=== PATIENT | female | born 1995 | race Caucasian/White ===

== ENCOUNTER 2022-01-04 14:45 | Emergency (ER) | payer MEDICAID, SELFPAY ==
[2022-01-04 14:47] VITALS: BP 124/69; PULSE 79; RESP 18; TEMP 36.5; O2SAT 99; BMI 34.9
--- NOTE | 2022-01-04 15:15 | EDS_ITS ---
HPI History of Present Illness Chief Complaint: Numb/Ting Onset/Context/Timing Onset: Today and Hours (5) Context: Gradual Onset Timing: Intermittent and Lasts (Approximately 1 minute) Quality: Tingling, numb Location: Right arm, right leg, left face Worsened by: Nothing Relieved by: Changing positions Narrative Narrative: Patient presents with paresthesias to her right arm and leg and left side of her face. Patient states these began approximately 10 AM (approximately 5 hours prior to arrival). Patient states it has been intermittent since this morning. Patient states it last for proxy 1 minute. Patient states she feels some tingling in her right arm and leg and then feels a numb sensation. Patient states that she gets up and moves and changes positions and it resolves. Patient states nothing makes it worse. Patient also admits to some tingling in the left side of her face. Patient states this is also been intermittent. Patient also admits to some intermittent chest pain and palpitations over the last couple days. Patient states these are unrelated to the numbness and tingling. Patient also admits to some pain in the right side of her neck. PFSH PFSH Medical History no medical history no medical history Home Medications NK 01/04/22 [History Last Taken Unknown] Allergy/AdvReac Type Severity Reaction Status Date / Time ceftriaxone [From Rocephin] Allergy Anaphylaxis Verified 01/04/22 14:47 Surgical History Previous section Social History Smoking Status: Former smoker ROS ROS ED Constitutional Constitutional ED: Denies chills or fever(s) Eyes Eyes: Denies blurry vision or change in vision ENT ENT ED: Denies rhinorrhea or sore throat Cardiovascular Cardiovascular: Reports chest pain and palpitations Respiratory/Chest Respiratory/Chest: Denies cough or dyspnea Gastrointestinal Gastrointestinal: Denies nausea or vomiting Genitourinary Genitourinary ED: Denies dysuria or hematuria Musculoskeletal Musculoskeletal: Reports neck pain; Denies back pain Integumentary Denies abscess or rash Neurologic Neurologic: Denies headache(s) or weakness Allergic/Immunologic Allergic/Immunologic ED: Denies mouth swelling or urticaria EXAM Physical Exam Const Vital Signs: 01/04/22 14:47 Temperature 97.7 F L Temperature Source Temporal Pulse Rate 79 Respiratory Rate 18 Blood Pressure 124/69 H Blood Pressure Mean 87 Pulse Ox 99 Oxygen Delivery Method Room Air Positive well nourished and well developed General Appearance ED: well developed and NAD HEENT Reports moist mucous membranes Neck supple and no JVD Resp normal respiratory effort and clear to auscultation bilaterally Cardio regular rate, regular rhythm and no murmurs GI normal to inspection, nondistended, normoactive bowel sounds and non-tender Palpation: soft Extremity normal to inspection General Extremety ED: Negative for edema or tenderness General Extremity: Negative for edema Neuro oriented x3 Neuro Narrative: There is slight decrease sensation to light touch in the left V3 distribution. There are no other sensory deficits noted. Sensorium / Orientation: alert Motor Exam: strength 5/5 throughout Psych mental status grossly normal Skin no rashes or lesions noted MDM MDM MDM Narrative Medical decision making narrative: CT scan of the brain was obtained. There is no acute intracranial abnormality. This was interpreted by the radiologist and reviewed by myself. CT scan of the cervical spine was obtained. There is no acute abnormality noted. There is no disc space narrowing. This was interpreted by the radiologist and reviewed by myself. CBC was essentially within normal limits. PT with INR and PTT were within normal limits. Initial BGT was 100. Comprehensive metabolic profile was within normal limits. High-sensitivity troponin was normal. Patient was advised of her findings. Since her NIH score is 1 for the slight decrease sensation in the V3 dermatome, and her symptoms are rapidly improving, patient does not qualify for stroke team for tPA. Patient was instructed to follow-up with her primary care physician for reevaluation in 3 to 5 days. Patient understood and was agreeable with the plan. All questions were answered. Lab Data Attestation: I reviewed the patient's lab results. Labs: Laboratory Results - last 24 hr 01/04/22 01/04/22 01/04/22 15:30 15:37 15:37 WBC 10.9 RBC 5.02 Hgb 15.1 H Hct 44.3 MCV 88.2 MCH 30.1 MCHC 34.1 RDW Std Deviation 38.8 RDW Coeff of Chelsie 12.1 Plt Count 275 MPV 9.9 Immature Gran % (Auto) 0.300 Neut % (Auto) 71.6 H Lymph % (Auto) 20.7 [place] % (Auto) 4.9 Eos % (Auto) 2.0 Baso % (Auto) 0.5 Absolute Neuts (auto) 7.8 H Absolute Lymphs (auto) 2.27 Nucleated RBC % 0 PT 12.9 INR 1.0 APTT 26.4 Sodium Potassium Chloride Carbon Dioxide Anion Gap BUN Creatinine Estim Creat Clear Calc Est GFR (MDRD) Af Amer Est GFR (MDRD) Non-Af BUN/Creatinine Ratio Glucose Calcium Total Bilirubin AST ALT Alkaline Phosphatase Troponin I High Sens Total Protein Albumin Globulin Albumin/Globulin Ratio POC Glucose 100 01/04/22 15:37 WBC RBC Hgb Hct MCV MCH MCHC RDW Std Deviation RDW Coeff of Chelsie Plt Count MPV Immature Gran % (Auto) Neut % (Auto) Lymph % (Auto) [place] % (Auto) Eos % (Auto) Baso % (Auto) Absolute Neuts (auto) Absolute Lymphs (auto) Nucleated RBC % PT INR APTT Sodium 140 Potassium 3.9 Chloride 107 Carbon Dioxide 29.0 Anion Gap 4 L BUN 10 Creatinine 0.70 Estim Creat Clear Calc 109.59 Est GFR (MDRD) Af Amer 129 Est GFR (MDRD) Non-Af 107 BUN/Creatinine Ratio 14.3 Glucose 97 Calcium 9.8 Total Bilirubin 0.30 AST 17 ALT 34 Alkaline Phosphatase 100 Troponin I High Sens < 3 L Total Protein 8.3 H Albumin 4.3 Globulin 4.0 Albumin/Globulin Ratio 1.1 POC Glucose Radiography Diagnostic Testing: Clinical Impression(s) from Imaging Studies Brain CT 01/04/22 15:21 IMPRESSION: Normal CT brain without intravenous contrast. Electronically Signed: Ben Golden MD at 16:11 EST , Cervical Spine CT 01/04/22 15:23 IMPRESSION: No acute bone or joint abnormality. Electronically Signed: Ben Golden MD at 16:14 EST , Discharge Plan Triage Chief Complaint: Numb/Ting ED Provider: Mario Watson Dx/Rx/DC Orders Clinical Impression: Facial paresthesia, Right leg paresthesias Instructions: ED Paraesthesias Prescriptions: No Action NK Primary Care Provider: Care Physician,No Primary Referrals: Evonne Napier MD [Med Staff - Circuit Breaker Supervisor] - 5-7 Days Care Physician,No Primary [Primary Care Provider] - Disposition Disposition: Home, Self Care
--- NOTE | 2022-01-04 15:21 | CT_ITS ---
EXAM: CT HEAD WITHOUT INTRAVENOUS CONTRAST CLINICAL INDICATION: Paresthesias TECHNIQUE: Multiple axial images were obtained of the head without intravenous contrast. This CT exam was performed using one or more of the following dose reduction techniques: automated exposure control, adjustment of the mA and/or kV according to patient size, and/or use of iterative reconstruction technique. This report was created using [employer] report generation technology. COMPARISON: None. FINDINGS: BRAIN AND EXTRA-AXIAL SPACES: Normal. No intra- or extra-axial hemorrhage. No evidence of acute infarct. No intracranial mass or mass effect. There is preservation of the coelho/white matter interface. Posterior fossa structures are unremarkable. Ventricles are appropriate for age. No hydrocephalus. Basal cisterns are patent. BONES/JOINTS: Normal. No discrete lytic or blastic abnormalities. SINUSES: Unremarkable as visualized. No acute sinusitis. MASTOID AIR CELLS: Normal. Clear. ORBITS: Visualized globes, extraocular muscles, optic nerves and retrobulbar fat appear unremarkable. CT/Brain/Head without Contrast IMPRESSION: Normal CT brain without intravenous contrast. Electronically Signed: Ben Golden MD at 16:11 EST ,
--- NOTE | 2022-01-04 15:23 | CT_ITS ---
EXAM: CT CERVICAL SPINE WITHOUT INTRAVENOUS CONTRAST CLINICAL INDICATION: Injury/Pain TECHNIQUE: Helically acquired images were obtained of the cervical spine without intravenous contrast. 2D reformatted images were reviewed. This CT exam was performed using one or more of the following dose reduction techniques: automated exposure control, adjustment of the mA and/or kV according to patient size, and/or use of iterative reconstruction technique. This report was created using [employer] report generation technology. COMPARISON: None. FINDINGS: VERTEBRAE: Loss of the normal cervical lordosis which may be due to muscle spasm or head positioning. DISCS/SPINAL CANAL/NEURAL FORAMINA: Normal. Disc heights are preserved. No critical stenosis. SOFT TISSUES: Normal. No prevertebral soft tissue swelling. LYMPH NODES: Normal. No cervical adenopathy. LUNG APICES: Unremarkable as visualized. Clear. CT/Spine Cervical without Contras IMPRESSION: No acute bone or joint abnormality. Electronically Signed: Ben Golden MD at 16:14 EST ,
[2022-01-04 15:46] LABS: Absolute Lymphocyte Count 2.27 X10^3/uL (0.83-4.51); Absolute Neutrophil Count 7.8 X10^3/uL (2.0-7.7); Basophil# 0.05 X10^3/uL; Basophil% 0.5 % (0-1); Eosinophil# 0.22 X10^3/uL; Hematocrit 44.3 % (37-47); Hemoglobin 15.1 g/dL (12.0-15.0); Lymphocyte # 2.27 X10^3/ul (0.83-4.51); Lymphocyte % 20.7 % (19-41); Mean Corp Hgb Conc 34.1 g/dL (32-36); Mean Corpuscular Hgb 30.1 pg (27.0-32.0); Mean Corpuscular Volume 88.2 fL (81-99); Mean Platelet Vol. 9.9 fl (6.2-12.0); Monocyte# 0.54 X10^3/uL; Monocyte% 4.9 % (0-10); NRBC Flagged by Analyzer 0 % (0-5); Neutrophil # 7.83 X10^3/uL (2.7-7.7); Neutrophil % 71.6 % (47-70); Platelet Count 275 K/mm3 (150-450); RBC Distribution Width CV 12.1 % (11.6-14.6); RBC Distribution Width SD 38.8 fl (35.1-43.9); Red Blood Count 5.02 M/mm3 (4.2-5.4); White Blood Count 10.9 K/mm3 (4.4-11.0)
[2022-01-04 15:55] LABS: Prothrombin Time (Protime)PT. 12.9 SECONDS (11.7-14.9)
[2022-01-04 15:56] LABS: Partial Thromboplast Time 26.4 Seconds (24.1-36.2)
[2022-01-04 16:01] LABS: Bedside Glucose 100 mg/dL (74-106)
[2022-01-04 16:06] LABS: ALB/GLOB Ratio 1.1 RATIO (0.9-2.4); AST(SGOT) 17 U/L (15-37); Alanine Aminotransfer ALT/SGPT 34 U/L (13-56); Albumin, Serum 4.3 g/dL (3.2-5.0); Alkaline Phosphatase 100 U/L (45-117); Anion Gap 4 (5-15); BUN 10 mg/dL (7-18); BUN/Creat Ratio 14.3 RATIO (10-20); Calcium,Total 9.8 mg/dL (8.5-10.1); Chloride 107 mmol/L (98-107); EST Glomerular Filtration Rate 107 mL/min (>60); Est Glom Filt Rate - Afr Amer 129 mL/min (>60); Estimated Creatinine Clearance 109.59 ml/min; Glucose 97 mg/dL (74-106); Potassium 3.9 mmol/L (3.5-5.1); Protein, Total 8.3 g/dL (6.4-8.2); Sodium Level 140 mmol/L (136-145); Troponin-I HS < 3 pg/mL (3.0-54.0)
[2022-01-04 16:58] VITALS: BP 138/82; PULSE 85; RESP 16; TEMP 36.6; O2SAT 100
--- NOTE | 2022-01-04 19:49 | CM.ED ---
SW Note Referral Source: Case Find Referral Reason: No Primary Care Physician (PCP) SW reviewed chart and noted that patient has no PCP. SW provided patient with list of [facility] and [facility] Physician List for reference. SW also provided patient with handout ?Where to go When?. No other issues or concerns voiced at this time. SW remains available for any additional needs. Plan: Provided patient with PCP information Chelle DE LOS SANTOS
== END 2022-01-04 16:59 | disposition home or self-care (01) ==
PROVIDERS: Emergency Provider Emergency Medicine; Visit Provider Emergency Medicine
DX: R20.2 Paresthesia of skin (principal); Z87.891 Personal history of nicotine dependence
CPT/HCPCS: 70450; 72125; 80053; 82962; 84484; 85025; 85610; 85730; 99284; A4216

== ENCOUNTER 2022-05-17 19:21 | Emergency (ER) | payer MEDICAID, SELFPAY ==
[2022-05-17 19:22] VITALS: BP 134/86; PULSE 105; RESP 18; TEMP 36.6; O2SAT 100; BMI 34.2
[2022-05-17 19:45] VITALS: RESP 18
--- NOTE | 2022-05-17 20:03 | EDS_ITS ---
HPI HPI - GI History of Present Illness Chief Complaint: Abd Pain Detail of Chief Complaint: Abdominal pain Informant: patient Narrative Narrative: Patient presents to the emergency department with complaint of abdominal pain that started yesterday evening. Patient states the pains been continuous and seems to be all over her abdomen but at times will get some sharper pains in the right lower quadrant. Patient's had nausea but no vomiting. She had some loose stool this morning. Patient states that she saw her PCP today because she has had some blood in her stool which was attributed to hemorrhoids. Patient has no family history of inflammatory bowel disease. She has had no fever. Patient denies urinary symptoms such as burning or frequency. She is currently on her menstrual period. She had no prior abdominal surgeries other than C-sections. PFSH PFSH Home Medications NK 01/04/22 [History Last Taken Unknown] Allergy/AdvReac Type Severity Reaction Status Date / Time ceftriaxone [From Rocephin] Allergy Anaphylaxis Verified 05/17/22 19:44 Surgical History Previous section Social History Smoking Status: Former smoker ROS ROS ED Review of Systems ROS Unobtainable: other Constitutional Constitutional ED: Reports lethargy; Denies chills, fever(s), sweats or weight loss Eyes Eyes: Denies blurry vision, change in vision or diplopia ENT ENT ED: Denies rhinorrhea or sore throat Cardiovascular Cardiovascular: Denies chest pain, orthopnea or racing heartbeat Respiratory/Chest Respiratory/Chest: Denies cough, dyspnea, dyspnea on exertion, orthopnea or sputum Gastrointestinal Gastrointestinal: Reports abdominal pain and nausea; Denies diarrhea or vomiting Genitourinary Genitourinary ED: Denies dysuria, hematuria or urinary frequency Musculoskeletal Musculoskeletal: Denies arthralgias, back pain, myalgias or neck pain Integumentary Denies abscess, Abrasions or rash Neurologic Neurologic: Denies headache(s) or weakness Psychiatric Psychiatric: Denies anxiety, depression or suicidal thoughts Endocrine Endocrinology: Denies polydipsia, polyphagia or polyuria Hematologic/Lymphatic Hematologic/Lymphatic: Denies easy bleeding, easy bruising or lymphadenopathy Allergic/Immunologic Allergic/Immunologic ED: Denies mouth swelling, tongue swelling or urticaria EXAM Physical Exam Const Vital Signs: 05/17/22 19:22 05/17/22 19:45 05/17/22 21:29 Temperature 98 F 97.6 F L Temperature Source Temporal Oral Pulse Rate 105 H 98 Respiratory Rate 18 18 17 Blood Pressure 134/86 H 117/73 Blood Pressure Mean 102 87 Pulse Ox 100 99 Oxygen Delivery Method Room Air Room Air Room Air Positive well nourished and well developed General Appearance ED: well developed and NAD HEENT Reports TM's clear and moist mucous membranes normocephalic and atraumatic; Negative for trauma or tenderness Tympanic Membrane ED: Yes TM's clear Eyes PERRL and EOMs intact bilaterally General Eye ED: Negative for pale conjunctiva or scleral icterus Neck no lymphadenopathy, supple and no JVD General: Negative for tenderness Chest Wall inspection of chest normal and palpation of chest normal Chest: Negative for tenderness Resp normal respiratory effort and clear to auscultation bilaterally Effort and Inspection: Negative for respiratory distress or pain with movement Auscultation: Negative for rhonchi, wheezes or diminished lung sounds Cardio regular rate, regular rhythm, S1 normal heart sound, S2 normal heart sound and no murmurs Peripheral Pulses: pulses 2+ throughout GI normal to inspection, nondistended, normoactive bowel sounds, soft to palpation, non-distended and no masses GI Narrative: Normal active bowel sounds. Mild diffuse tenderness. There is no rebound, rigidity, or peritoneal signs. Point of maximal tenderness over right lower quadrant. Negative Rovsing's. Negative Marcial sign. Back/Spine no CVA tenderness and no thoracic nor lumbar tenderness Extremity normal to inspection General Extremety ED: Negative for edema General Extremity: Negative for edema Neuro oriented x3, CN's II-XII intact bilaterally, no sensory deficits noted and gait normal Sensorium / Orientation: awake, alert, oriented to person, oriented to place and oriented to time Motor Exam: strength 5/5 throughout and strength abnormal Psych mental status grossly normal Skin no rashes or lesions noted and no wounds MDM MDM MDM Narrative Medical decision making narrative: Patient's presenting with abdominal pain since yesterday. She had an evaluation earlier today by PCP including a rectal exam therefore this was not repeated. Patient was started on some cream for hemorrhoids. CBC with differential showed a white count of 9.2 and a hemoglobin of 14.7 with a platelet count of 240. Chemistries and LFTs were normal. Lipase normal. Urinalysis was normal. CT scan of the abdomen pelvis with IV and p.o. contrast was normal. Patient did not require anything for pain in the department. At this point she will be discharged to home. She will be referred to general surgeon on-call for follow- up especially if she continues to have rectal bleeding. She may require colonoscopy or further testing. Discharged home in stable condition. Advised to return if persistent heavy bleeding, fever, vomiting, worsening pain, or condition worsening way. Lab Data Labs: Laboratory Results - last 24 hr 05/17/22 05/17/22 05/17/22 20:14 20:45 20:45 WBC 9.2 RBC 4.96 Hgb 14.7 Hct 44.5 MCV 89.7 MCH 29.6 MCHC 33.0 RDW Std Deviation 41.6 RDW Coeff of Chelsie 12.6 Plt Count 240 MPV 10.0 Immature Gran % (Auto) 0.200 Neut % (Auto) 70.9 H Lymph % (Auto) 21.7 [place] % (Auto) 5.9 Eos % (Auto) 0.9 Baso % (Auto) 0.4 Absolute Neuts (auto) 6.5 Absolute Lymphs (auto) 2.00 Nucleated RBC % 0 Sodium 141 Potassium 3.6 Chloride 108 H Carbon Dioxide 28.0 Anion Gap 5 BUN 8 Creatinine 0.68 Estim Creat Clear Calc 111.82 Est GFR (MDRD) Af Amer 133 Est GFR (MDRD) Non-Af 110 BUN/Creatinine Ratio 11.7 Glucose 109 H Lactic Acid Calcium 9.4 Total Bilirubin 0.50 AST 16 ALT 31 Alkaline Phosphatase 80 Total Protein 7.9 Albumin 4.2 Globulin 3.7 Albumin/Globulin Ratio 1.1 Lipase 72 L Serum , Qual Urine Color Yellow Urine Clarity Clear Urine pH 6.0 Ur Specific Lucas 1.020 Urine Protein 15 H Urine Glucose (UA) Normal Urine Ketones 50 H Urine Occult Blood 10 H Urine Nitrite Negative Urine Bilirubin Negative Urine Urobilinogen Normal Ur Leukocyte Esterase Negative Urine RBC 0-5 SEEN Urine WBC 0 SEEN Ur Squamous Epith Cells 0 SEEN Urine Bacteria 0 SEEN Urine Mucus 0 SEEN 05/17/22 05/17/22 20:45 20:45 WBC RBC Hgb Hct MCV MCH MCHC RDW Std Deviation RDW Coeff of Chelsie Plt Count MPV Immature Gran % (Auto) Neut % (Auto) Lymph % (Auto) [place] % (Auto) Eos % (Auto) Baso % (Auto) Absolute Neuts (auto) Absolute Lymphs (auto) Nucleated RBC % Sodium Potassium Chloride Carbon Dioxide Anion Gap BUN Creatinine Estim Creat Clear Calc Est GFR (MDRD) Af Amer Est GFR (MDRD) Non-Af BUN/Creatinine Ratio Glucose Lactic Acid 0.9 Calcium Total Bilirubin AST ALT Alkaline Phosphatase Total Protein Albumin Globulin Albumin/Globulin Ratio Lipase Serum , Qual NEGATIVE Urine Color Urine Clarity Urine pH Ur Specific Lucas Urine Protein Urine Glucose (UA) Urine Ketones Urine Occult Blood Urine Nitrite Urine Bilirubin Urine Urobilinogen Ur Leukocyte Esterase Urine RBC Urine WBC Ur Squamous Epith Cells Urine Bacteria Urine Mucus Radiography Diagnostic Testing: Clinical Impression(s) from Imaging Studies Abdomen/Pelvis CT 05/17/22 22:10 IMPRESSION: No acute intra-abdominal pathology. Electronically Signed: Palmer Chin DO at 22:50 EDT , Discharge Plan Triage Chief Complaint: Abd Pain ED Provider: Prashanth Umana Dx/Rx/DC Orders Clinical Impression: Abdominal pain, Rectal bleed Instructions: ED Abdominal Pain Unkn Cause Fem, ED Lower GI Bleeding (Stable) Prescriptions: No Action NK Primary Care Provider: Edna Sweeney NP Referrals: Vasile Goode MD [Med Staff - Active Staff] - 3-5 Days Care Physician,No Primary [Non-Staff] - Disposition Disposition: Home, Self Care
[2022-05-17 20:29] LABS: Bacteria 0 SEEN /hpf (None Seen); Mucous, Urine 0 SEEN /hpf (<or=2+); Squamous Epithelial Cells - UA 0 SEEN /hpf (5-10); White Blood Cells 0 SEEN /hpf (0-5)
[2022-05-17 20:36] LABS: Color, Urine Yellow (Yellow); Glucose, Dipstick Normal (Normal); Ketone-Dipstick 50 mg/dl (Negative); Leukocyte Esterase-Dipstick Negative /ul (Negative); Nitrite-Dipstick Negative (Negative); Occult Blood-Urine 10 /ul (Negative); Protein-Dipstick 15 mg/dl (Negative); Urine Bilirubin Dipstick Negative (Negative); Urine Clarity Clear (Clear); Urine Urobilinogen Normal (Normal)
[2022-05-17 20:46] LABS: Red Blood Cells-Urine 0-5 SEEN /hpf (0-5)
[2022-05-17] MEDS: 0.9% Normal Saline 1,000 ML 125 ML IV (20:51)
[2022-05-17 20:56] LABS: Absolute Neutrophil Count 6.5 X10^3/uL (2.0-7.7); Basophil# 0.04 X10^3/uL; Basophil% 0.4 % (0-1); Eosinophil# 0.08 X10^3/uL; Eosinophils% 0.9 % (0-5); Hematocrit 44.5 % (37-47); Hemoglobin 14.7 g/dL (12.0-15.0); Lymphocyte % 21.7 % (19-41); Mean Corpuscular Hgb 29.6 pg (27.0-32.0); Mean Corpuscular Volume 89.7 fL (81-99); Monocyte# 0.54 X10^3/uL; Monocyte% 5.9 % (0-10); NRBC Flagged by Analyzer 0 % (0-5); Neutrophil # 6.52 X10^3/uL (2.7-7.7); Neutrophil % 70.9 % (47-70); Platelet Count 240 K/mm3 (150-450); RBC Distribution Width CV 12.6 % (11.6-14.6); RBC Distribution Width SD 41.6 fl (35.1-43.9); Red Blood Count 4.96 M/mm3 (4.2-5.4); White Blood Count 9.2 K/mm3 (4.4-11.0)
[2022-05-17 21:14] LABS: ALB/GLOB Ratio 1.1 RATIO (0.9-2.4); AST(SGOT) 16 U/L (15-37); Alanine Aminotransfer ALT/SGPT 31 U/L (13-56); Albumin, Serum 4.2 g/dL (3.2-5.0); Alkaline Phosphatase 80 U/L (45-117); Anion Gap 5 (5-15); BUN 8 mg/dL (7-18); BUN/Creat Ratio 11.7 RATIO (10-20); Calcium,Total 9.4 mg/dL (8.5-10.1); Chloride 108 mmol/L (98-107); Creatinine, Serum 0.68 mg/dL (0.55-1.02); EST Glomerular Filtration Rate 110 mL/min (>60); Est Glom Filt Rate - Afr Amer 133 mL/min (>60); Estimated Creatinine Clearance 111.82 ml/min; Globulin 3.7 g/dL (2.2-4.2); Glucose 109 mg/dL (74-106); Lipase 72 U/L (73-393); Potassium 3.6 mmol/L (3.5-5.1); Protein, Total 7.9 g/dL (6.4-8.2); Sodium Level 141 mmol/L (136-145)
[2022-05-17 21:25] LABS: Lactic Acid 0.9 mmol/L (0.4-1.9)
[2022-05-17 21:29] VITALS: BP 117/73; PULSE 98; RESP 17; TEMP 36.4; O2SAT 99
[2022-05-17 21:57] LABS: Internal QC Validated? YES +Cl - CLEAR BKGD; Pregnancy, Serum, hCG Quali. NEGATIVE Negative
--- NOTE | 2022-05-17 22:10 | CT_ITS ---
INDICATION: RLQ abdominal pain -- IV PO Contrast EXAMINATION: CT ABDOMEN AND PELVIS WITH CONTRAST - CT Abdomen And Pelvis W/ Contrast Injection TECHNIQUE: Helically acquired images were obtained of the abdomen and pelvis following IV contrast. A radiation dose optimization technique was used for this scan. IV Contrast dosage and agent: 100 mL of Isovue-370. Oral contrast: Dilute Gastrografin. COMPARISON: None. FINDINGS: LOWER CHEST: Lung bases are clear. No cardiomegaly or pericardial effusion. LIVER: Homogeneous. No focal mass. GALLBLADDER AND BILIARY TREE: No calcified gallstones. No gallbladder distension or wall edema. No intra- or extrahepatic biliary ductal dilation. PANCREAS: No focal cystic or solid mass. SPLEEN: Normal size without focal cystic or solid mass. ADRENAL GLANDS: No nodules. KIDNEYS, URETERS and BLADDER: Normal renal size and position. No mass. No hydronephrosis. Bladder is unremarkable. PERITONEUM: No ascites or free air. No other fluid collection. BOWEL: No evidence of acute appendicitis. No abnormally distended bowel loops or air fluid levels. No wall thickening or mass. No focal inflammatory changes. LYMPH NODES: No enlarged mesenteric or retroperitoneal lymph nodes. VESSELS: Aorta is non-dilated. REPRODUCTIVE ORGANS: Uterus and ovaries are within normal limits. ABDOMINAL WALL: Small fat filled umbilical hernia with no bulging hernia sac. BONES: No lytic or blastic abnormality. Small bridging ossification posterior left sacroiliac joint. CT/Abdomen/Pelvis WITH Contrast IMPRESSION: No acute intra-abdominal pathology. Electronically Signed: Palmer Chin DO at 22:50 EDT ,
[2022-05-17 23:03] VITALS: BP 149/64; PULSE 107; O2SAT 97
== END 2022-05-17 23:10 | disposition home or self-care (01) ==
PROVIDERS: Emergency Provider Emergency Medicine; PCP Clinical Nurse Specialist; Visit Provider Emergency Medicine
DX: R10.9 Unspecified abdominal pain (principal); K62.5 Hemorrhage of anus and rectum; Z87.891 Personal history of nicotine dependence
CPT/HCPCS: 74177; 80053; 81001; 83605; 83690; 84703; 85025; 99283; J7030; Q9967; A4216

== ENCOUNTER 2022-05-19 10:21 | Emergency (ER) | payer MEDICAID, SELFPAY ==
[2022-05-19 10:23] VITALS: BP 121/72; PULSE 87; RESP 14; TEMP 36.6; O2SAT 97; BMI 33.7
[2022-05-19] MEDS: Metoclopramide 10 MG/2 ML Vial IV (11:06)
[2022-05-19] MEDS: 0.9% Normal Saline 1,000 ML 1000 ML IV (11:06)
[2022-05-19 11:09] LABS: Absolute Lymphocyte Count 1.67 X10^3/uL (0.83-4.51); Basophil# 0.04 X10^3/uL; Basophil% 0.5 % (0-1); Eosinophil# 0.05 X10^3/uL; Eosinophils% 0.6 % (0-5); Hematocrit 44.6 % (37-47); Lymphocyte # 1.67 X10^3/ul (0.83-4.51); Lymphocyte % 20.4 % (19-41); Mean Corp Hgb Conc 33.6 g/dL (32-36); Mean Corpuscular Hgb 30.2 pg (27.0-32.0); Mean Corpuscular Volume 89.7 fL (81-99); Mean Platelet Vol. 10.1 fl (6.2-12.0); Monocyte# 0.44 X10^3/uL; Monocyte% 5.4 % (0-10); NRBC Flagged by Analyzer 0 % (0-5); Neutrophil # 5.96 X10^3/uL (2.7-7.7); Neutrophil % 72.6 % (47-70); Platelet Count 230 K/mm3 (150-450); RBC Distribution Width CV 12.4 % (11.6-14.6); RBC Distribution Width SD 41.2 fl (35.1-43.9); Red Blood Count 4.97 M/mm3 (4.2-5.4); White Blood Count 8.2 K/mm3 (4.4-11.0)
[2022-05-19 11:29] LABS: ALB/GLOB Ratio 1.1 RATIO (0.9-2.4); AST(SGOT) 17 U/L (15-37); Alanine Aminotransfer ALT/SGPT 32 U/L (13-56); Albumin, Serum 4.2 g/dL (3.2-5.0); Alkaline Phosphatase 82 U/L (45-117); Anion Gap 8 (5-15); BUN 12 mg/dL (7-18); BUN/Creat Ratio 16.8 RATIO (10-20); Calcium,Total 9.4 mg/dL (8.5-10.1); Chloride 105 mmol/L (98-107); Creatinine, Serum 0.72 mg/dL (0.55-1.02); EST Glomerular Filtration Rate 104 mL/min (>60); Est Glom Filt Rate - Afr Amer 126 mL/min (>60); Estimated Creatinine Clearance 105.61 ml/min; Globulin 3.8 g/dL (2.2-4.2); Glucose 89 mg/dL (74-106); Lipase 79 U/L (73-393); Potassium 3.6 mmol/L (3.5-5.1); Sodium Level 140 mmol/L (136-145)
[2022-05-19 12:48] VITALS: BP 111/61; PULSE 81; RESP 16; O2SAT 98
--- NOTE | 2022-05-19 13:34 | EDS_ITS ---
HPI HPI - GI History of Present Illness Chief Complaint: Abd Pain Narrative Narrative: 27-year-old female with ongoing abdominal pain. She was seen here few days ago and had normal lab work and CT scan. She states she was discharged with Zofran and took one the other day which helped for short while. She did not take any today. She still having diarrhea. No black or bloody stools. PFSH PFSH Home Medications famotidine 20 mg tablet (Acid Controller) 20 mg PO BID #20 tabs 05/19/22 [Rx Last Taken Unknown] Allergy/AdvReac Type Severity Reaction Status Date / Time ceftriaxone [From Rocephin] Allergy Anaphylaxis Verified 05/19/22 10:23 Surgical History Previous section Social History Smoking Status: Former smoker ROS ROS ED Constitutional Constitutional ED: Denies chills, fever(s) or sweats Eyes Eyes: Denies blurry vision or change in vision ENT ENT ED: Denies ear pain or sore throat Cardiovascular Cardiovascular: Denies chest pain, palpitations or racing heartbeat Respiratory/Chest Respiratory/Chest: Denies cough, dyspnea or sputum Gastrointestinal Gastrointestinal: Reports abdominal pain, diarrhea, nausea and vomiting; Denies constipation Genitourinary Genitourinary ED: Denies dysuria, hematuria or urinary frequency Musculoskeletal Musculoskeletal: Denies arthralgias, myalgias or neck pain Integumentary Denies abscess, Abrasions or rash Neurologic Neurologic: Denies headache(s), paresthesias or weakness Psychiatric Psychiatric: Denies anxiety, depression, suicidal ideation or suicidal thoughts Endocrine Endocrinology: Denies polydipsia or polyuria EXAM Physical Exam Const Vital Signs: 05/19/22 10:23 05/19/22 12:48 Temperature 98 F Temperature Source Oral Pulse Rate 87 81 Respiratory Rate 14 16 Blood Pressure 121/72 H 111/61 Blood Pressure Mean 88 77 Pulse Ox 97 98 Oxygen Delivery Method Room Air Room Air Positive well nourished General Appearance ED: NAD; Negative for pallor HEENT Reports moist mucous membranes normocephalic Eyes PERRL General Eye ED: Negative for scleral icterus Resp normal respiratory effort Effort and Inspection: Negative for respiratory distress Cardio regular rate and regular rhythm GI Palpation: tender epigastric Neuro CN's II-XII intact bilaterally Sensorium / Orientation: alert Motor Exam: strength 5/5 throughout Psych mental status grossly normal and thought process normal Skin General Skin Exam: Negative for jaundice or pallor MDM MDM MDM Narrative Medical decision making narrative: 27-year-old female with ongoing nausea, vomiting, diarrhea, abdominal pain with recent CT and normal blood work. She reports to me that she has not been taking the Zofran she was prescribed. IV line was established. Patient is given a liter normal saline. She is given Reglan as well for nausea. CBC was obtained as well as CMP and these are both normal. Lipase is negative. I do feel the patient is stable for discharge. Discussed all findings. Recommended that she continue the Zofran and add Pepcid to her regimen. [place] foods. Drink plenty of water. Impression: 1. Abdominal pain 2. Nausea/vomiting 3. Diarrhea Lab Data Labs: Laboratory Results - last 24 hr 05/19/22 05/19/22 10:57 10:57 WBC 8.2 RBC 4.97 Hgb 15.0 Hct 44.6 MCV 89.7 MCH 30.2 MCHC 33.6 RDW Std Deviation 41.2 RDW Coeff of Chelsie 12.4 Plt Count 230 MPV 10.1 Immature Gran % (Auto) 0.500 Neut % (Auto) 72.6 H Lymph % (Auto) 20.4 [place] % (Auto) 5.4 Eos % (Auto) 0.6 Baso % (Auto) 0.5 Absolute Neuts (auto) 6.0 Absolute Lymphs (auto) 1.67 Nucleated RBC % 0 Sodium 140 Potassium 3.6 Chloride 105 Carbon Dioxide 27.0 Anion Gap 8 BUN 12 Creatinine 0.72 Estim Creat Clear Calc 105.61 Est GFR (MDRD) Af Amer 126 Est GFR (MDRD) Non-Af 104 BUN/Creatinine Ratio 16.8 Glucose 89 Calcium 9.4 Total Bilirubin 0.60 AST 17 ALT 32 Alkaline Phosphatase 82 Total Protein 8.0 Albumin 4.2 Globulin 3.8 Albumin/Globulin Ratio 1.1 Lipase 79 Discharge Plan Triage Chief Complaint: Abd Pain ED Provider: Bruce Smith Dx/Rx/DC Orders Prescriptions: New famotidine [Acid Controller] 20 mg tablet 20 mg PO BID Qty: 20 0RF Primary Care Provider: Edan Sweeney NP Referrals: Sweeney,Edna ROUGHER MACHINE OPERATOR, ROUGHER MACHINE OPERATOR-C [Primary Care Provider] - Disposition Disposition: Home, Self Care
== END 2022-05-19 13:52 | disposition home or self-care (01) ==
PROVIDERS: Emergency Provider Student in an Organized Health Care Education/Training Program; PCP Clinical Nurse Specialist; Visit Provider Student in an Organized Health Care Education/Training Program
DX: R10.9 Unspecified abdominal pain (principal); R11.2 Nausea with vomiting, unspecified; R19.7 Diarrhea, unspecified; Z87.891 Personal history of nicotine dependence
CPT/HCPCS: 80053; 83690; 85025; 96361; 96374; 99282; J7030; A4216

== ENCOUNTER 2022-06-23 09:49 | Emergency (ER) | payer MEDICAID, SELFPAY ==
[2022-06-23 09:51] VITALS: BP 80/60; PULSE 106; RESP 18; TEMP 36.6; O2SAT 100; BMI 32.3
[2022-06-23 09:58] VITALS: BP 130/77; PULSE 88; RESP 17; O2SAT 99
--- NOTE | 2022-06-23 10:12 | EKG12_ITS ---
Test Reason : PALPS Blood Pressure : / mmHG Vent. Rate : 082 BPM Atrial Rate : 082 BPM P-R Int : 132 ms QRS Dur : 086 ms QT Int : 364 ms P-R-T Axes : 066 083 024 degrees QTc Int : 425 ms Normal sinus rhythm Nonspecific T wave abnormality Abnormal ECG Confirmed by SONDRA JETT, ARELI ([id number]), food expeditor WADE HUBBARD ([id number]) on 06/24/2022 9:03:40 AM Referred By: LOTUS Confirmed By:ARELI AMARO MD
--- NOTE | 2022-06-23 10:16 | RAD_ITS ---
STUDY: X-RAY CHEST REASON FOR EXAM: Female, 27 years old. Chest pain. Dizziness and palpitations. TECHNIQUE: Single AP portable view of the chest. COMPARISON: None. FINDINGS: EKG electrodes are seen. The lungs are clear and expanded. There is no demonstrated pleural abnormality. Normal size heart. Normal mediastinum and maribel. Normal visualized pulmonary arteries. Normal visualized aortic arch and descending thoracic aorta. Normal visualized thoracic spine. Normal visualized ribs, clavicles, and shoulders. There is no demonstrated abnormality of the visualized soft tissue structures of the upper abdomen. RAD/Chest 1 View (Portable) IMPRESSION: Normal x-ray examination of the chest. Electronically Signed: Ernst Cadena MD at 11:00 EDT ,
[2022-06-23 10:28] LABS: Absolute Lymphocyte Count 1.68 X10^3/uL (0.83-4.51); Absolute Neutrophil Count 4.8 X10^3/uL (2.0-7.7); Basophil# 0.04 X10^3/uL; Basophil% 0.6 % (0-1); Eosinophil# 0.09 X10^3/uL; Eosinophils% 1.3 % (0-5); Hematocrit 45.2 % (37-47); Hemoglobin 15.3 g/dL (12.0-15.0); Lymphocyte # 1.68 X10^3/ul (0.83-4.51); Lymphocyte % 23.4 % (19-41); Mean Corp Hgb Conc 33.8 g/dL (32-36); Mean Corpuscular Volume 88.6 fL (81-99); Mean Platelet Vol. 10.2 fl (6.2-12.0); Monocyte# 0.53 X10^3/uL; Monocyte% 7.4 % (0-10); NRBC Flagged by Analyzer 0 % (0-5); Neutrophil # 4.81 X10^3/uL (2.7-7.7); Neutrophil % 66.7 % (47-70); Platelet Count 279 K/mm3 (150-450); RBC Distribution Width CV 12.6 % (11.6-14.6); RBC Distribution Width SD 40.9 fl (35.1-43.9); White Blood Count 7.2 K/mm3 (4.4-11.0)
[2022-06-23 10:32] VITALS: BP 121/70; BP 121/75; BP 125/76; PULSE 77; PULSE 80; PULSE 86
--- NOTE | 2022-06-23 10:39 | EX.ED.DYSGE1 ---
HPI History of Present Illness Chief Complaint: Palpitations Narrative Narrative: 27-year-old female presenting with fatigue for about 5 days. Patient reports that yesterday she started feeling lightheaded before bed. It does not feel vertiginous to her. She states she just went to bed. She had intermittent bouts of this throughout the day. She is no history of syncope/near syncope. She is not having chest pain but does note that she is having some palpitations. Patient was seen in urgent care and referred to the emergency room. Patient denies any significant medical history. She states she is eating and drinking normally. She making normal urine and stool. She not had any diarrhea or constipation. No urinary or vaginal complaints. PFSH PFSH Home Medications famotidine 20 mg tablet (Acid Controller) 20 mg PO BID #20 tabs 05/19/22 [Rx Last Taken Unknown] Allergy/AdvReac Type Severity Reaction Status Date / Time ceftriaxone [From Rocephin] Allergy Anaphylaxis Verified 06/23/22 09:50 Surgical History Previous section Social History Smoking Status: Former smoker ROS ROS ED ROS Narrative Lightheadedness Constitutional Constitutional ED: Denies chills, fever(s) or sweats Eyes Eyes: Denies blurry vision or change in vision ENT ENT ED: Denies ear pain or sore throat Cardiovascular Cardiovascular: Denies chest pain, palpitations or racing heartbeat Respiratory/Chest Respiratory/Chest: Denies cough, dyspnea or sputum Gastrointestinal Gastrointestinal: Denies abdominal pain, constipation, diarrhea, nausea or vomiting Genitourinary Genitourinary ED: Denies dysuria, hematuria or urinary frequency Musculoskeletal Musculoskeletal: Denies arthralgias, myalgias or neck pain Integumentary Denies abscess, Abrasions or rash Neurologic Neurologic: Denies headache(s), paresthesias or weakness Psychiatric Psychiatric: Denies anxiety, depression, suicidal ideation or suicidal thoughts Endocrine Endocrinology: Denies polydipsia or polyuria EXAM Physical Exam Const Vital Signs: 06/23/22 09:51 06/23/22 09:58 06/23/22 10:12 Temperature 97.8 F Temperature Source Temporal Pulse Rate 106 H 88 Pulse Rate [Lying] Pulse Rate [Sitting (for 1 minute prior to obtaining)] Pulse Rate [Standing (for 1 minute prior to obtaining)] Respiratory Rate 18 17 Blood Pressure 80/60 L 130/77 H Blood Pressure [Lying] Blood Pressure [Sitting (for 1 minute prior to obtaining)] Blood Pressure [Standing (for 1 minute prior to obtaining)] Blood Pressure Mean 66 94 Blood Pressure Mean [Lying] Blood Pressure Mean [Sitting (for 1 minute prior to obtaining)] Blood Pressure Mean [Standing (for 1 minute prior to obtaining)] Pulse Ox 100 99 Oxygen Delivery Method Room Air Room Air Room Air 06/23/22 10:32 06/23/22 10:50 06/23/22 11:00 Temperature Temperature Source Pulse Rate 100 87 Pulse Rate [Lying] 80 Pulse Rate [Sitting (for 1 minute prior to obtaining)] 77 Pulse Rate [Standing (for 1 minute prior to obtaining)] 86 Respiratory Rate 16 16 Blood Pressure 126/84 H 128/72 H Blood Pressure [Lying] 121/70 H Blood Pressure [Sitting (for 1 minute prior to obtaining)] 125/76 H Blood Pressure [Standing (for 1 minute prior to obtaining)] 121/75 H Blood Pressure Mean 98 90 Blood Pressure Mean [Lying] 87 Blood Pressure Mean [Sitting (for 1 minute prior to obtaining)] 92 Blood Pressure Mean [Standing (for 1 minute prior to obtaining)] 90 Pulse Ox 98 99 Oxygen Delivery Method Room Air Room Air General Appearance ED: Negative for pallor HEENT Reports normocephalic, head/scalp atraumatic and moist mucous membranes Eyes PERRL and EOMs intact bilaterally Neck no lymphadenopathy and supple Chest Wall inspection of chest normal and palpation of chest normal Resp normal respiratory effort and clear to auscultation bilaterally Auscultation: Negative for rales, rhonchi or wheezes Cardio regular rate and regular rhythm Narrative: Deferred Extremity normal to inspection General Extremety ED: Negative for edema or tenderness General Extremity: Negative for edema Neuro oriented x3 and CN's II-XII intact bilaterally Sensorium / Orientation: alert Motor Exam: strength 5/5 throughout Psych mental status grossly normal Attitude: No agitated Skin no rashes or lesions noted and no wounds General Skin Exam: Negative for jaundice or pallor MDM MDM MDM Narrative Medical decision making narrative: Patient presenting with lightheadedness. She is only had the symptoms since yesterday. Her initial blood pressure was 80/60 with a heart rate of 106. Blood pressure then normalized to 130/77. Differential includes dehydration, ACS, PE, pneumonia, dysrhythmia, electrolyte abnormalities. CBC to assess white blood cell count, hemoglobin, platelets, differential. BMP to assess renal function, electrolytes, glucose, anion gap. High-sensitivity troponin, chest x-ray, EKG are obtained as part of cardiac work-up. We will also obtain a D-dimer as I cannot use the PERC rule. EKG on my interpretation shows a normal sinus rhythm with a ventricular rate of 82 bpm without sign of ischemic change or dysrhythmia. Chest x-ray my interpretation shows no acute cardiopulmonary process. Radiologist services and agrees. CBC shows no leukocytosis. Hemoglobin slightly hemoconcentrated 15.3. Platelets are normal. High-sensitivity troponin less than 3. Renal function, electrolytes unremarkable. D-dimer came back elevated at 0.57 therefore the patient had a CTA to rule out PE and this was negative for acute findings. Orthostatic vital signs were normal and she was given a liter of IV fluids. At this point I feel the patient can be discharged home. Return precautions discussed. Recommend follow-up with PCP to ensure resolution. Impression: 1. Lightheadedness 2. Palpitations Lab Data Attestation: I reviewed the patient's lab results. Labs: Laboratory Results - last 24 hr 06/23/22 06/23/22 06/23/22 10:10 10:10 10:10 WBC 7.2 RBC 5.10 Hgb 15.3 H Hct 45.2 MCV 88.6 MCH 30.0 MCHC 33.8 RDW Std Deviation 40.9 RDW Coeff of Chelsie 12.6 Plt Count 279 MPV 10.2 Immature Gran % (Auto) 0.600 Neut % (Auto) 66.7 Lymph % (Auto) 23.4 [place] % (Auto) 7.4 Eos % (Auto) 1.3 Baso % (Auto) 0.6 Absolute Neuts (auto) 4.8 Absolute Lymphs (auto) 1.68 Nucleated RBC % 0 D-Dimer Quant (PE/DVT) 0.57 H* Sodium 139 Potassium 3.6 Chloride 108 H Carbon Dioxide 26.0 Anion Gap 5 BUN 5 L Creatinine 0.69 Estim Creat Clear Calc 110.20 Est GFR (MDRD) Af Amer 131 Est GFR (MDRD) Non-Af 108 BUN/Creatinine Ratio 7.2 L Glucose 108 H Calcium 9.5 Troponin I High Sens < 3 L Radiography Diagnostic Testing: Clinical Impression(s) from Imaging Studies Chest X-Ray 06/23/22 10:16 IMPRESSION: Normal x-ray examination of the chest. Electronically Signed: Ernst Cadena MD at 11:00 EDT , Chest CTA 06/23/22 10:42 IMPRESSION: Normal CTA chest examination, without a demonstrated pulmonary embolism or arterial dissection. Electronically Signed: Ernst Cadena MD at 11:19 EDT , Discharge Plan Triage Chief Complaint: Palpitations ED Provider: Bruce Smith Dx/Rx/DC Orders Prescriptions: No Action famotidine [Acid Controller] 20 mg tablet 20 mg PO BID Qty: 20 0RF Primary Care Provider: Edna Sweeney NP Referrals: Edna Sweeney ELECTRICAL AND INSTRUMENT TECHNICIAN, [employer] AND INSTRUMENT TECHNICIAN[facility] [Primary Care Provider] -
[2022-06-23 10:40] LABS: Anion Gap 5 (5-15); BUN 5 mg/dL (7-18); BUN/Creat Ratio 7.2 RATIO (10-20); Calcium,Total 9.5 mg/dL (8.5-10.1); Chloride 108 mmol/L (98-107); Creatinine, Serum 0.69 mg/dL (0.55-1.02); EST Glomerular Filtration Rate 108 mL/min (>60); Est Glom Filt Rate - Afr Amer 131 mL/min (>60); Glucose 108 mg/dL (74-106); Potassium 3.6 mmol/L (3.5-5.1); Sodium Level 139 mmol/L (136-145); Troponin-I HS (w/2H Reflex) < 3 pg/mL (3.0-54.0)
[2022-06-23 10:41] LABS: D-Dimer Quantitative (DVT/PE) 0.57 FEU/ug/m (0.27-0.49)
--- NOTE | 2022-06-23 10:42 | CT_ITS ---
STUDY: CTA CHEST REASON FOR EXAM: Female, 27 years old. Near syncope. Palpitations. RADIATION DOSAGE (If Supplied By Facility): CTDIvol = ( 9.47 ) mGy, DLP = ( 423.57 ) mGycm TECHNIQUE: The examination was performed with the intravenous administration of IV 100mL [id number]. Post-processing of the angiographic images was performed, with multiplanar reformation and 3D reconstruction. Individualized dose optimization techniques were used for this CT. COMPARISON: Comparison is made with prior chest radiograph done earlier in the day. FINDINGS: Normal enhancement of the main pulmonary artery and right and left pulmonary arteries. Normal enhancement of the bilateral peripheral pulmonary arteries. There is no demonstrated pulmonary embolism. Normal thoracic aorta and visualized great vessels. There is no demonstrated aortic dissection. Normal heart and pericardium. Normal mediastinum. Normal hilar regions. Normal visualized trachea and bronchi. The lungs are well expanded. Normal pulmonary parenchyma. Normal pleura. Normal chest wall structures. Normal osseous structures. Normal visualized upper abdomen. CT/CTA Chest W/WO Contrast IMPRESSION: Normal CTA chest examination, without a demonstrated pulmonary embolism or arterial dissection. Electronically Signed: Ernst Cadena MD at 11:19 EDT ,
[2022-06-23] MEDS: 0.9% Normal Saline 1,000 ML 999 ML IV (10:45)
[2022-06-23 10:50] VITALS: BP 126/84; PULSE 100; RESP 16; O2SAT 98
[2022-06-23 11:00] VITALS: BP 128/72; PULSE 87; RESP 16; O2SAT 99
[2022-06-23 12:19] LABS: Reflex Troponin-HS? (from REC) Y
== END 2022-06-23 11:43 | disposition home or self-care (01) ==
PROVIDERS: Emergency Provider Student in an Organized Health Care Education/Training Program; PCP Clinical Nurse Specialist; Visit Provider Student in an Organized Health Care Education/Training Program
DX: R42 Dizziness and giddiness (principal); R00.2 Palpitations; Z87.891 Personal history of nicotine dependence
CPT/HCPCS: 71045; 71275; 80048; 84484; 85025; 85379; 93005; 99284; J7030; Q9967; A4216